=== PATIENT | male | born 1970 | race Caucasian/White ===

== ENCOUNTER 2016-12-11 15:04 | Emergency (ER) | payer MEDICAID ==
[~2016-12-11] VITALS: Ht 167.6 cm; Wt 102.0 kg
[2016-12-11] MEDS ORDERED: KETOROLAC 30MG/ML VIAL IV STA (16:46)
[2016-12-11] MEDS ORDERED: ONDANSETRON HCL 4MG/2ML VIAL IV STA (16:46)
[2016-12-11] MEDS ORDERED: SODIUM CHLORIDE 0.9% 1,000 ML IV ONE (16:46)
[2016-12-11 17:08] LABS: CLARITY URINE CLEAR (CLEAR); COLOR URINE YELLOW (YELLOW); GLUCOSE URINE NEGATIVE (NEGATIVE); HEMATOCRIT. 38.2 % (42.0-52.0); HEMOGLOBIN. 13.2 g/dL (14.0-18.0); KETONES URINE NEGATIVE (NEGATIVE); LEUKOCYTE ESTERASE URINE NEGATIVE (NEGATIVE); MEAN CORPUSCULAR HEMOGLOBIN 30.3 pg (28.0-32.0); MEAN CORPUSCULAR HGB CONC 34.6 g/dL (31.0-37.0); MEAN CORPUSCULAR VOLUME 87.6 fL (80.0-94.0); MEAN PLATELET VOLUME 8.6 fl (7.4-10.4); NITRITE URINE NEGATIVE (NEGATIVE); OCCULT BLOOD URINE NEGATIVE (NEGATIVE); PH URINE 5.5 (4.5-8.0); PLATELET 80 x1000/uL (130-400); PROTEIN URINE NEGATIVE (NEGATIVE); RED BLOOD CELL COUNT 4.36 mill/uL (4.7-6.1); RED CELL DISTRIBUTION WIDTH 20.8 % (11.6-14.6); SPECIFIC GRAVITY URINE 1.013 (1.005-1.030); WHITE BLOOD COUNT 7.7 x1000/uL (4.5-11.0)
[2016-12-11 17:09] LABS: DIFFERENTIAL COMMENT 1
[2016-12-11 17:16] LABS: ALBUMIN 3.8 g/dL (3.4-5.0); ANION GAP 12; CALCIUM 8.9 mg/dL (8.5-10.1); CARBON DIOXIDE 26 mEq/L (21-32); CHLORIDE 105 mEq/L (98-107); INDEX HEMOLYSI 1 (1-3); INDEX ICTERIC 1 (1-4); INDEX LIPEMIC 1 (1-3); LIPASE 136 IU/L (73-393); UREA NITROGEN BLOOD 8 mg/dL (7-21)
[2016-12-11 17:17] LABS: INR 1.1; PROTHROMBIN TIME 11.4 sec
[2016-12-11 17:21] LABS: ALANINE AMINOTRANSFERASE 43 IU/L (13-61); eGFR > 60 mL/min (>60)
[2016-12-11 17:28] LABS: PLATELET ESTIMATE DECREASED
[2016-12-11 19:20] VITALS: BP 167/99
== END 2016-12-11 20:10 | disposition home or self-care (01) ==
LOC: ER 16:25
DX: R10.11 Right upper quadrant pain (principal); K42.9 Umbilical hernia without obstruction or gangrene; Z98.890 Other specified postprocedural states
CPT/HCPCS: 36415; 74176; 80053; 81003; 83690; 85025; 85610; 96361; 96374; 96375; 99285; J1885; J2405; J7030; Z7610

== ENCOUNTER 2017-07-22 16:14 | Inpatient (IN) | payer SELFPAY ==
[~2017-07-22] VITALS: Ht 165.1 cm; Wt 97.7 kg
[2017-07-22 18:35] LABS: BASOPHILS % 0.5 % (0.0-2.0); EOSINOPHILS % 1.7 % (0.0-5.0); HEMATOCRIT. 37.8 % (42.0-52.0); HEMOGLOBIN. 12.8 g/dL (14.0-18.0); LYMPHOCYTES % 23.5 % (20.0-50.0); MEAN CORPUSCULAR HEMOGLOBIN 26.6 pg (28.0-32.0); MEAN CORPUSCULAR VOLUME 78.7 fL (80.0-94.0); MEAN PLATELET VOLUME 8.8 fl (7.4-10.4); MONOCYTES % 12.1 % (2.0-8.0); NEUTROPHILS % 62.2 % (40.0-76.0); PLATELET 134 x1000/uL (130-400); RED BLOOD CELL COUNT 4.81 mill/uL (4.7-6.1); RED CELL DISTRIBUTION WIDTH 20.8 % (11.6-14.6)
[2017-07-22 18:39] LABS: INR 1.1; PROTHROMBIN TIME 11.6 sec (9.4-11.6)
[2017-07-22 18:53] LABS: CARBON DIOXIDE 25 mEq/L (21-32); CHLORIDE 107 mEq/L (98-107); TROPONIN I < 0.02 ng/mL (0.00-0.04)
[2017-07-22] MEDS ORDERED: ASPIRIN 325MG EC TABLET PO ONE (19:30)
[2017-07-22 22:00] VITALS: BP 153/94
[2017-07-22] MEDS ORDERED: CLONIDINE 0.1MG TABLET PO PRN (23:45)
[2017-07-22] MEDS ORDERED: HYDROCODONE/ACETAMINOPHEN 5/325MG TABLET PO PRN (23:45)
[2017-07-23] MEDS: LISINOPRIL 10MG TABLET PO SCH ×2 (00:15→08:59)
[2017-07-23] MEDS ORDERED: INFLUENZA VIRUS VACCINE 0.5ML SYR IM ONE (03:00)
[2017-07-23] MEDS ORDERED: PNEUMOCOCCAL 23-VAL P-SAC VAC 0.5 ML IM ONE (03:00)
[2017-07-23 04:00] VITALS: BP 126/84
[2017-07-23 06:37] LABS: BASOPHILS % 0.5 % (0.0-2.0); EOSINOPHILS % 2.9 % (0.0-5.0); HEMATOCRIT. 36.6 % (42.0-52.0); HEMOGLOBIN. 12.4 g/dL (14.0-18.0); LYMPHOCYTES % 25.9 % (20.0-50.0); MEAN CORPUSCULAR HEMOGLOBIN 26.7 pg (28.0-32.0); MEAN PLATELET VOLUME 8.5 fl (7.4-10.4); MONOCYTES % 14.9 % (2.0-8.0); NEUTROPHILS % 55.8 % (40.0-76.0); PLATELET 122 x1000/uL (130-400); RED BLOOD CELL COUNT 4.63 mill/uL (4.7-6.1); RED CELL DISTRIBUTION WIDTH 20.3 % (11.6-14.6)
[2017-07-23 07:09] LABS: CARBON DIOXIDE 24 mEq/L (21-32); CHLORIDE 108 mEq/L (98-107); LDL CHOLESTEROL 55 mg/dL (5-100)
[2017-07-23 07:19] LABS: HDL CHOLESTEROL 56 mg/dL (40-59)
[2017-07-23 07:59] LABS: *AMPHETAMINES SCREEN URINE NEGATIVE (NEGATIVE); *BARBITURATES SCREEN URINE NEGATIVE (NEGATIVE); *BENZODIAZEPINES SCREEN URINE NEGATIVE (NEGATIVE); *COCAINE SCREEN URINE NEGATIVE (NEGATIVE); CANNABINOID URINE SCREEN NEGATIVE (NEGATIVE); METHADONE URINE SCREEN NEGATIVE (NEGATIVE); OPIATES URINE SCREEN NEGATIVE (NEGATIVE); PHENCYCLIDINE URINE SCREEN NEGATIVE (NEGATIVE)
[2017-07-23 08:25] VITALS: BP 139/94
[2017-07-23] MEDS: ENOXAPARIN 30MG/0.3ML SYR SUBCUT SCH ×2 (09:00→21:00)
[2017-07-23] MEDS ORDERED: ENOXAPARIN 40MG/0.4ML SYR SUBCUT SCH (09:00)
[2017-07-23] MEDS: ASPIRIN 325MG EC TABLET PO SCH (11:44)
[2017-07-23 11:54] VITALS: BP 115/79
[2017-07-23 16:48] VITALS: BP 134/84
[2017-07-23 20:00] VITALS: BP 122/80
[2017-07-23] MEDS: LISINOPRIL 20MG TABLET PO SCH (21:00)
[2017-07-23] MEDS ORDERED: ATORVASTATIN CALCIUM 20MG TABLET PO SCH (21:00)
[2017-07-24] VITALS: BP 121/90
[2017-07-24 04:00] VITALS: BP 119/78
[2017-07-24 08:00] VITALS: BP 117/79
[2017-07-24] MEDS: ENOXAPARIN 30MG/0.3ML SYR SUBCUT SCH (08:40)
[2017-07-24] MEDS: LISINOPRIL 20MG TABLET PO SCH (08:40)
[2017-07-24] MEDS: ASPIRIN 325MG EC TABLET PO SCH (08:40)
[2017-07-24] MEDS ORDERED: ENOXAPARIN 40MG/0.4ML SYR SUBCUT SCH (09:00)
[2017-07-24 12:00] VITALS: BP 138/84
[2017-07-24] MEDS ORDERED: ASPI-867 PO (14:11)
[2017-07-24] MEDS ORDERED: ATOR20TA PO (14:11)
[2017-07-24] MEDS ORDERED: LISI-604 PO (14:11)
[2017-07-24 16:00] VITALS: BP_SYST 122; BP_SYST 128; BP_DIAS 68; BP_DIAS 86
== END 2017-07-24 16:35 | disposition home or self-care (01) | DRG 45 ==
LOC: ER 16:27 → 5WST 20:03 → ENRESERV 20:58
PROVIDERS: ADMIT Internal Medicine; ATTEND Internal Medicine
DX: I63.9 Cerebral infarction, unspecified (principal); I10 Essential (primary) hypertension; E66.9 Obesity, unspecified; F10.10 Alcohol abuse, uncomplicated; Z87.891 Personal history of nicotine dependence; Z91.14 Patient's other noncompliance with medication regimen; Z91.19 Patient's noncompliance with other medical treatment and regimen; Z68.35 Body mass index [BMI] 35.0-35.9, adult
CPT/HCPCS: 36415; 70450; 70551; 71010; 80053; 80061; 80305; 83036; 84443; 84484; 85025; 85610; 90686; 90732; 92523; 92610; 93005; 93306; 93880; 97110; 97116; 97163; 97165; 99285; J1650

== ENCOUNTER 2020-01-31 22:17 | Emergency (ER) | payer SELFPAY ==
[~2020-01-31] VITALS: Ht 185.4 cm; Wt 80.0 kg
[~2020-01-31 22:17] MED LIST: ASPI325T85 PO; ATOR20TA PO; LISI-604 PO
[2020-01-31] MEDS ORDERED: ACETAMINOPHEN 325MG TABLET PO ONE (23:30)
[2020-02-01 02:55] VITALS: BP 157/75
== END 2020-02-01 02:57 | disposition home or self-care (01) ==
LOC: ER 22:17
DX: M25.561 Pain in right knee (principal); I10 Essential (primary) hypertension; Z86.73 Personal history of transient ischemic attack (TIA), and cerebral infarction without residual deficits
CPT/HCPCS: 73562; 93971; 99284

== ENCOUNTER 2020-10-16 01:50 | Inpatient (IN) | payer MEDICAID, OTHER ==
[~2020-10-16] VITALS: Ht 167.6 cm; Wt 99.8 kg
[~2020-10-16 01:50] MED LIST changes: +ASPI-867 PO; -ASPI325T85 PO; -LISI-604 PO; +LISI20TA31 PO
[2020-10-16 03:08] LABS: BASOPHILS % 0.8 % (0.0-2.0); EOSINOPHILS % 1.8 % (0.0-5.0); HEMATOCRIT. 44.2 % (42.0-52.0); HEMOGLOBIN. 15.2 g/dL (14.0-18.0); LYMPHOCYTES % 26.1 % (20.0-50.0); MEAN CORPUSCULAR HEMOGLOBIN 31.6 pg (28.0-32.0); MEAN CORPUSCULAR VOLUME 92.2 fL (80.0-94.0); MEAN PLATELET VOLUME 8.8 fl (7.4-10.4); MONOCYTES % 14.1 % (2.0-8.0); NEUTROPHILS % 57.2 % (40.0-76.0); PLATELET 119 x1000/uL (130-400); RED CELL DISTRIBUTION WIDTH 15.3 % (11.6-14.6)
[2020-10-16 03:10] LABS: CHLORIDE 110 mEq/L (98-107)
[2020-10-16 03:15] LABS: ETHANOL BLOOD 242 mg/dL
[2020-10-16 03:17] LABS: LDL CHOLESTEROL 55 mg/dL (5-100)
[2020-10-16 03:35] LABS: INR 1.1
[2020-10-16] MEDS ORDERED: ATORVASTATIN CALCIUM 40MG TABLET PO SCH (04:45)
[2020-10-16] MEDS ORDERED: ASPIRIN 325MG TABLET PO ONE (04:45)
[2020-10-16] MEDS ORDERED: IOHEXOL-350 100 ML BOTTLE ONE (04:55)
[2020-10-16] MEDS ORDERED: MAGNESIUM/ALUMINUM HYDROXIDE/SIMETHICONE 30ML UDC PO PRN (10:30)
[2020-10-16] MEDS ORDERED: DIPHENHYDRAMINE 50MG/ML VIAL IV PRN (10:30)
[2020-10-16] MEDS ORDERED: ACETAMINOPHEN 325MG TABLET PO PRN (10:30)
[2020-10-16] MEDS ORDERED: ENOXAPARIN 40MG/0.4ML SYR SUBCUT SCH (10:30)
[2020-10-16] MEDS ORDERED: ONDANSETRON HCL 4MG/2ML INJ IV PRN (10:30)
[2020-10-16] MEDS ORDERED: MVI, ADULT NO.1 10 ML, FOLIC ACID 1 MG, THIAMINE HCL 100 MG in SODIUM CHLORIDE 0.9% 1,0... IV NR (11:00)
[2020-10-16 12:00] VITALS: BP 139/89
[2020-10-16 13:00] VITALS: BP 139/89
[2020-10-16] MEDS: ENOXAPARIN 30MG/0.3ML SYR SUBCUT SCH ×2 (13:39→20:56)
[2020-10-16] MEDS: SODIUM CHLORIDE 0.9% INJ 3ML FLUSH IVF SCH ×2 (13:40→20:56)
[2020-10-16 16:00] VITALS: BP 147/89
[2020-10-16 20:00] VITALS: BP 162/105
[2020-10-16] MEDS ORDERED: INFLUENZA VACCINE 05/PF 0.5 ML VIAL IM ONE (20:00)
[2020-10-16] MEDS: CLONIDINE 0.1MG TABLET PO PRN (20:56)
[2020-10-17] VITALS (7 sets, daily range): BP systolic 133–151; BP diastolic 91–101
[2020-10-17] MEDS: SODIUM CHLORIDE 0.9% INJ 3ML FLUSH IVF SCH ×2 (05:45→13:33)
[2020-10-17] MEDS: CLONIDINE 0.1MG TABLET PO PRN ×2 (08:35→16:59)
[2020-10-17] MEDS: ENOXAPARIN 30MG/0.3ML SYR SUBCUT SCH (08:35)
[2020-10-17] MEDS ORDERED: ASPIRIN 81MG EC TABLET PO SCH (09:00)
[2020-10-17] MEDS ORDERED: DEXAMETHASONE 4MG/ML 1ML VIAL IV SCH (10:00)
[2020-10-17] MEDS: AMLODIPINE 10MG TABLET PO SCH (13:27)
[2020-10-17] MEDS: DEXAMETHASONE 4MG/ML 1ML VIAL IV SCH ×3 (16:25→23:32)
[2020-10-18] VITALS: BP 135/88
[2020-10-18 04:00] VITALS: BP 124/82
[2020-10-18] MEDS: DEXAMETHASONE 4MG/ML 1ML VIAL IV SCH ×4 (05:12→22:57)
[2020-10-18 08:00] VITALS: BP 132/91
[2020-10-18] MEDS: SODIUM CHLORIDE 0.9% INJ 3ML FLUSH IVF SCH ×3 (09:54→22:16)
[2020-10-18] MEDS: AMLODIPINE 10MG TABLET PO SCH (09:54)
[2020-10-18 12:00] VITALS: BP 140/85
[2020-10-18 15:58] VITALS: BP 132/87
[2020-10-18 20:00] VITALS: BP 146/85
[2020-10-19] VITALS: BP 133/84
[2020-10-19 04:00] VITALS: BP 123/81
[2020-10-19] MEDS: SODIUM CHLORIDE 0.9% INJ 3ML FLUSH IVF SCH ×2 (06:18→22:00)
[2020-10-19] MEDS: DEXAMETHASONE 4MG/ML 1ML VIAL IV SCH ×4 (06:18→23:09)
[2020-10-19] MEDS ORDERED: BACITRACIN 50,000 UNITS/VIAL ONE (07:05)
[2020-10-19] MEDS ORDERED: THROMBIN (BOVINE) 5000 UNITS/VIAL TOP ONE (07:05)
[2020-10-19] MEDS ORDERED: SODIUM CHLORIDE 0.9% INJ 10ML FLUSH IVF ONE (07:05)
[2020-10-19] MEDS ORDERED: BACITRACIN 15GM TUBE TOP ONE (07:05)
[2020-10-19] MEDS ORDERED: ROCURONIUM BROMIDE 10MG/ML VIAL 5ML IV ONE (10:20)
[2020-10-19] MEDS ORDERED: DEXAMETHASONE 4MG/ML 1ML VIAL ONE (10:21)
[2020-10-19] MEDS ORDERED: PROPOFOL 200MG/20ML VIAL IV ONE (10:21)
[2020-10-19] MEDS ORDERED: HYDROMORPHONE HCL/PF 2MG/ML (OR) ONE (10:37)
[2020-10-19] MEDS ORDERED: HYDRALAZINE 20MG/ML VIAL ONE (11:37)
[2020-10-19] MEDS ORDERED: METOPROLOL TARTRATE 5MG/5ML VIAL IV ONE (12:08)
[2020-10-19] MEDS ORDERED: NEOSTIGMINE METHYLSULFATE 1MG/ML 10 ML VIAL ONE (12:30)
[2020-10-19] MEDS ORDERED: GLYCOPYRROLATE 0.2 MG/ML 2ML VIAL ONE (12:30)
[2020-10-19] MEDS ORDERED: ONDANSETRON HCL 4MG/2ML INJ IV PRN (12:45)
[2020-10-19] MEDS ORDERED: MEPERIDINE HCL/PF 25MG/ML CPJ IV PRN (12:45)
[2020-10-19] MEDS ORDERED: LABETALOL 5MG/ML SYR 20 MG/4 ML SYRINGE IV PRN (12:45)
[2020-10-19] MEDS: MORPHINE SULFATE 4 MG/ML CPJ (NOT FOR IM USE) IV PRN (13:21)
[2020-10-19] MEDS: DEXT 5%/LACTATED RINGERS 1,000 ML IV SCH ×2 (13:30→23:05)
[2020-10-19] MEDS ORDERED: CEFAZOLIN SODIUM 1000MG/VIAL IV SCH (14:00)
[2020-10-19] MEDS: HYDROMORPHONE HCL/PF 2MG/ML CPJ IV PRN ×4 (14:00→14:44)
[2020-10-19] MEDS: NICARDIPINE 100 MG in SODIUM CHLORIDE 0.9% 60 ML IV PRN (14:23)
[2020-10-19] MEDS: CEFAZOLIN 1000MG PREMIX 50 ML IV SCH (18:31)
[2020-10-19 20:00] VITALS: BP_SYST 122; BP_SYST 124; BP_DIAS 66; BP_DIAS 72
[2020-10-20] VITALS (88 sets, daily range): BP systolic 59–160; BP diastolic 44–157
[2020-10-20] MEDS: CEFAZOLIN 1000MG PREMIX 50 ML IV SCH ×4 (01:53→21:15)
[2020-10-20] MEDS: MORPHINE SULFATE 4 MG/ML CPJ (NOT FOR IM USE) IV PRN ×6 (01:54→21:16)
[2020-10-20] MEDS: SODIUM CHLORIDE 0.9% INJ 3ML FLUSH IVF SCH ×3 (05:17→21:16)
[2020-10-20] MEDS: DEXAMETHASONE 4MG/ML 1ML VIAL IV SCH ×2 (05:20→11:21)
[2020-10-20] MEDS: DEXT 5%/LACTATED RINGERS 1,000 ML IV SCH ×3 (08:45→18:51)
[2020-10-20] MEDS: AMLODIPINE 10MG TABLET PO SCH ×2 (09:00→11:10)
[2020-10-20] MEDS: NICARDIPINE 100 MG in SODIUM CHLORIDE 0.9% 60 ML IV PRN (09:22)
[2020-10-21 00:36] VITALS: BP 106/51
[2020-10-21] MEDS: MORPHINE SULFATE 4 MG/ML CPJ (NOT FOR IM USE) IV PRN ×2 (03:03→12:49)
[2020-10-21 04:00] VITALS: BP 121/80
[2020-10-21] MEDS: DEXT 5%/LACTATED RINGERS 1,000 ML IV SCH ×3 (05:41→20:07)
[2020-10-21] MEDS: CEFAZOLIN 1000MG PREMIX 50 ML IV SCH ×3 (05:45→21:54)
[2020-10-21 08:00] VITALS: BP 127/79
[2020-10-21 08:26] LABS: HEMATOCRIT. 39.3 % (42.0-52.0); HEMOGLOBIN. 13.8 g/dL (14.0-18.0); MEAN CORPUSCULAR HEMOGLOBIN 31.9 pg (28.0-32.0); MEAN CORPUSCULAR VOLUME 90.9 fL (80.0-94.0); PLATELET 124 x1000/uL (130-400); RED BLOOD CELL COUNT 4.32 mill/uL (4.7-6.1); RED CELL DISTRIBUTION WIDTH 15.6 % (11.6-14.6)
[2020-10-21 08:47] LABS: CHLORIDE 104 mEq/L (98-107)
[2020-10-21] MEDS: AMLODIPINE 10MG TABLET PO SCH (10:04)
[2020-10-21 12:00] VITALS: BP 130/77
[2020-10-21] MEDS: SODIUM CHLORIDE 0.9% INJ 3ML FLUSH IVF SCH ×3 (14:51→21:54)
[2020-10-21 16:00] VITALS: BP 132/85
[2020-10-21 20:00] VITALS: BP 132/84
[2020-10-22 02:18] VITALS: BP 132/82
[2020-10-22 04:00] VITALS: BP 136/90
[2020-10-22] MEDS: DEXT 5%/LACTATED RINGERS 1,000 ML IV SCH ×3 (05:06→21:11)
[2020-10-22] MEDS: MORPHINE SULFATE 4 MG/ML CPJ (NOT FOR IM USE) IV PRN ×3 (05:10→15:44)
[2020-10-22] MEDS: CEFAZOLIN 1000MG PREMIX 50 ML IV SCH ×3 (05:55→21:10)
[2020-10-22] MEDS: SODIUM CHLORIDE 0.9% INJ 3ML FLUSH IVF SCH ×3 (05:55→22:00)
[2020-10-22 08:00] VITALS: BP 141/94
[2020-10-22] MEDS: AMLODIPINE 10MG TABLET PO SCH (09:26)
[2020-10-22 12:00] VITALS: BP 139/93
[2020-10-22 16:00] VITALS: BP 140/92
[2020-10-22 20:00] VITALS: BP 141/92
[2020-10-22 21:09] LABS: PLATELET ESTIMATE SLIGHTLY DECREASED
[2020-10-23] VITALS (7 sets, daily range): BP systolic 129–160; BP diastolic 58–99
[2020-10-23] MEDS: ACETAMINOPHEN 325MG TABLET PO PRN (01:28)
[2020-10-23] MEDS: DEXT 5%/LACTATED RINGERS 1,000 ML IV SCH ×3 (03:36→21:24)
[2020-10-23] MEDS: CEFAZOLIN 1000MG PREMIX 50 ML IV SCH ×3 (06:01→21:23)
[2020-10-23] MEDS: SODIUM CHLORIDE 0.9% INJ 3ML FLUSH IVF SCH ×3 (06:01→21:25)
[2020-10-23] MEDS: AMLODIPINE 10MG TABLET PO SCH (08:56)
[2020-10-23] MEDS: MORPHINE SULFATE 4 MG/ML CPJ (NOT FOR IM USE) IV PRN ×2 (08:56→14:49)
[2020-10-23] MEDS: CLONIDINE 0.1MG TABLET PO PRN (21:23)
[2020-10-24] VITALS: BP 120/84
[2020-10-24] MEDS: MORPHINE SULFATE 4 MG/ML CPJ (NOT FOR IM USE) IV PRN ×2 (00:09→06:24)
[2020-10-24] MEDS: ACETAMINOPHEN 325MG TABLET PO PRN (02:33)
[2020-10-24] MEDS: DEXT 5%/LACTATED RINGERS 1,000 ML IV SCH ×3 (03:43→20:15)
[2020-10-24 04:00] VITALS: BP 108/80
[2020-10-24] MEDS: CEFAZOLIN 1000MG PREMIX 50 ML IV SCH ×2 (05:09→13:12)
[2020-10-24] MEDS: SODIUM CHLORIDE 0.9% INJ 3ML FLUSH IVF SCH ×3 (06:23→21:25)
[2020-10-24 08:00] VITALS: BP 119/79
[2020-10-24] MEDS: AMLODIPINE 10MG TABLET PO SCH (10:01)
[2020-10-24 12:00] VITALS: BP 142/90
[2020-10-24 16:00] VITALS: BP 125/92
[2020-10-24 20:00] VITALS: BP 124/82
[2020-10-25] VITALS: BP 133/87
[2020-10-25] MEDS: ACETAMINOPHEN 325MG TABLET PO PRN ×2 (03:48→20:51)
[2020-10-25 04:00] VITALS: BP 120/79
[2020-10-25] MEDS: DEXT 5%/LACTATED RINGERS 1,000 ML IV SCH ×3 (04:57→20:08)
[2020-10-25] MEDS: SODIUM CHLORIDE 0.9% INJ 3ML FLUSH IVF SCH ×3 (07:02→20:51)
[2020-10-25 08:00] VITALS: BP 119/79
[2020-10-25] MEDS: AMLODIPINE 10MG TABLET PO SCH (08:47)
[2020-10-25 12:00] VITALS: BP 122/78
[2020-10-25 13:08] LABS: HEMATOCRIT. 40.9 % (42.0-52.0); HEMOGLOBIN. 14.1 g/dL (14.0-18.0); MEAN CORPUSCULAR HEMOGLOBIN 31.1 pg (28.0-32.0); MEAN CORPUSCULAR VOLUME 90.3 fL (80.0-94.0); MEAN PLATELET VOLUME 9.2 fl (7.4-10.4); PLATELET 124 x1000/uL (130-400); RED BLOOD CELL COUNT 4.53 mill/uL (4.7-6.1); RED CELL DISTRIBUTION WIDTH 15.6 % (11.6-14.6)
[2020-10-25 13:16] LABS: CHLORIDE 106 mEq/L (98-107)
[2020-10-25 14:04] LABS: PLATELET ESTIMATE SLIGHTLY DECREASED
[2020-10-25 16:00] VITALS: BP 128/78
[2020-10-25 20:00] VITALS: BP 138/87
[2020-10-26] VITALS: BP 121/75
[2020-10-26 04:00] VITALS: BP 124/76
[2020-10-26] MEDS: DEXT 5%/LACTATED RINGERS 1,000 ML IV SCH ×3 (04:15→20:15)
[2020-10-26] MEDS: SODIUM CHLORIDE 0.9% INJ 3ML FLUSH IVF SCH ×3 (06:13→22:00)
[2020-10-26 08:00] VITALS: BP 118/83
[2020-10-26] MEDS: AMLODIPINE 10MG TABLET PO SCH (11:13)
[2020-10-26 12:00] VITALS: BP 116/70
[2020-10-26 16:00] VITALS: BP 121/77
[2020-10-26 22:43] VITALS: BP 156/90
[2020-10-27] VITALS (7 sets, daily range): BP systolic 106–135; BP diastolic 69–87
[2020-10-27 01:10] LABS: BASOPHILS % 0.3 % (0.0-2.0); EOSINOPHILS % 0.7 % (0.0-5.0); HEMATOCRIT. 39.6 % (42.0-52.0); HEMOGLOBIN. 13.2 g/dL (14.0-18.0); LYMPHOCYTES % 14.7 % (20.0-50.0); MEAN CORPUSCULAR HEMOGLOBIN 30.1 pg (28.0-32.0); MEAN CORPUSCULAR VOLUME 90.2 fL (80.0-94.0); MEAN PLATELET VOLUME 8.6 fl (7.4-10.4); MONOCYTES % 12.7 % (2.0-8.0); NEUTROPHILS % 71.6 % (40.0-76.0); PLATELET 144 x1000/uL (130-400); RED BLOOD CELL COUNT 4.39 mill/uL (4.7-6.1); RED CELL DISTRIBUTION WIDTH 15.9 % (11.6-14.6)
[2020-10-27 01:21] LABS: CHLORIDE 106 mEq/L (98-107)
[2020-10-27] MEDS: SODIUM CHLORIDE 0.9% INJ 3ML FLUSH IVF SCH ×2 (06:37→14:42)
[2020-10-27] MEDS: AMLODIPINE 10MG TABLET PO SCH (11:12)
[2020-10-27] MEDS ORDERED: AMLO10TA80 PO (12:01)
[2020-10-27] MEDS: DEXT 5%/LACTATED RINGERS 1,000 ML IV SCH ×2 (12:15→15:17)
== END 2020-10-27 19:30 | disposition home health service (06) | DRG 321 ==
LOC: ER 02:10 → 5WST 06:32 → EDBEDREQ 06:38 → ENRESERV 09:46 → MICUSO 10-20 00:23 → 6EST 10-20 22:40
PROVIDERS: ADMIT Internal Medicine; ATTEND Internal Medicine
PROC: 00NW0ZZ Release Cervical Spinal Cord, Open Approach (ICD-10-PCS; principal; 2020-10-19)
PROC: 00NW0ZZ Release Cervical Spinal Cord, Open Approach (ICD-10-PCS; 2020-10-19)
PROC: 0RG2071 Fusion of 2 or more Cervical Vertebral Joints with Autologous Tissue Substitute, Posterior Approach, Posterior Column, Open Approach (ICD-10-PCS; 2020-10-19)
DX: M48.02 Spinal stenosis, cervical region (principal); G82.50 Quadriplegia, unspecified; G99.2 Myelopathy in diseases classified elsewhere; M50.223 Other cervical disc displacement at C6-C7 level; I12.0 Hypertensive chronic kidney disease with stage 5 chronic kidney disease or end stage renal disease; E78.5 Hyperlipidemia, unspecified; N18.6 End stage renal disease; R04.0 Epistaxis; N40.0 Benign prostatic hyperplasia without lower urinary tract symptoms; Z20.822 Contact with and (suspected) exposure to COVID-19; F10.129 Alcohol abuse with intoxication, unspecified; Y90.8 Blood alcohol level of 240 mg/100 ml or more; G95.20 Unspecified cord compression; R27.0 Ataxia, unspecified; R47.1 Dysarthria and anarthria; I69.354 Hemiplegia and hemiparesis following cerebral infarction affecting left non-dominant side; Z99.2 Dependence on renal dialysis; H91.90 Unspecified hearing loss, unspecified ear
CPT/HCPCS: 36415; 70496; 70498; 70551; 71045; 72040; 72141; 76000; 80048; 80053; 80320; 83721; 84484; 85025; 86850; 86900; 87426; 88304; 88311; 90686; 93005; 95863; 95925; 95926; 95928; 95929; 97116; 97162; 97164; 97166; 97168; 97530; 97535; 99285; C1713; J0360; J0690; J1100; J1170; J1650; J2270; J2704; J2710; J3411; J3490; J7030; J7050; J7121; L0172; Q9967; G0480